=== PATIENT | male | born 1985 | race Two or more races ===

== ENCOUNTER 2019-12-14 12:24 | Emergency (ER) | payer OTHER, SELFPAY ==
[2019-12-14 13:00] VITALS: BP 116/68; PULSE 76; RESP 16; TEMP 36.8; O2SAT 98; BMI 26.1
[2019-12-14 13:09] VITALS: BMI 57.5
--- NOTE | 2019-12-14 13:24 | XR_ITS ---
EXAMINATION: RIGHT FOOT AND RIGHT ANKLE. CLINICAL INFORMATION: Status post injury. Now with pain to right foot and ankle. COMPARISON: None TECHNIQUE: 2 views right foot. 3 views right ankle. FINDINGS: RIGHT FOOT: There is no visible acute fracture, dislocation or subluxation. The soft tissues are normal. RIGHT ANKLE: There is no visible fracture, dislocation or subluxation. The ankle mortise and subtalar joints are normal. IMPRESSION: Unremarkable right foot exam. Unremarkable right ankle exam.
--- NOTE | 2019-12-14 14:24 | ED.LOWEXIN ---
HPI - Extremity Injury (Lower) General Chief Complaint: Extremity Injury, Lower Stated Complaint: r leg inj at home Time Seen by Provider: 12/14/19 13:09 Source: patient Mode of arrival: ambulatory Limitations: no limitations History of Present Illness HPI Narrative: 34yoM c No Sig PMHx presenting to the ED c c/o Right ankle/foot s/p jumping and twisting his foor/ankle saturday and since then has been having pain. Denies any other injuries Or complaints or concerns at this time. Related Data Allergies Allergy/AdvReac Type Severity Reaction Status Date / Time No Known Allergies Allergy Unverified 11/12/19 15:33 Review of Systems Review of Systems: Skin : No Skin Lesions, No rash. No abrasions, No lacerations Neuro : No Weakness, No Numbness, No Paresthesias, No Loss of Consciousness Yes all other systems are reviewed and are negative [facility] Past Medical History Medical History (Updated 12/14/19 @ 13:03 by Benton Bhardwaj) No known health problems Social History Social History Alcohol intake: never Smoked in Last 30 Days: No Use of substances other than those prescribed or required for medical reasons: No Advance Directives: No Advance Directives Information Provided: No Physical Exam Vital Signs: Vital Signs: Vital Signs Temp Pulse Resp BP Pulse Ox 12/14/19 13:00 98.2 F 76 16 116/68 98 Body Mass Index 57.5 vital signs have been reviewed as normal and appeared to be correct. Blood pressure normal. Heart rate normal. Respiration rate normal. Temperature normal. Oxygen saturation normal. Appearance: Alert. Oriented X3. No acute distress. Head: Normal external exam. Normocephalic. Atraumatic. No Corrigan signs noted. No raccoon eyes noted Eyes: PERRLA. EOMI. Conjunctiva and sclera normal. Eyelids normal. ENT: EAC normal. TM's Normal. Pharynx normal. Uvula midline. Moist mucous membranes. No trismus noted. No drooling noted. No muffled voice noted. Neck: Normal inspection. Neck supple. FROM. No adenopathy. Thyroid Normal. No meningeal signs. No neck mass noted. CVS: Normal heart rate and rhythm. Heart sound normal. No murmurs noted. Pulses normal throughout. Respiratory: No respiratory distress. Painless inspiration. Breath sounds normal. No wheezes/rales/rhonchi noted. Chest nontender. No accessory muscle usage noted or decreased air movement noted. Abdomen: Soft and nontender. Bowel sounds normal in all 4 quadrants. No distention noted. No organomegaly noted. No visible injury noted. Back: No CVA tenderness. Full range of motion noted. Skin: Skin warm and dry. Normal skin color. Normal skin turgor. No rashes/lesions/lacerations noted. Extremities: TTP of r lateral aspect of ankle and proximal aspect of foot c mild sts. No obvious deformities. Patient has full range of motion. Normal steady gait. No lower extremity edema. All other Extremities exhibit normal range of motion and nontender. Neuro: Oriented X 3. No motor deficit. No sensory deficit. Reflexes normal. Course Course Course Narrative: 34yoM c No Sig PMHx presenting to the ED c c/o Right ankle/foot s/p jumping and twisting his foor/ankle saturday and since then has been having pain. - Plan: XRay of r ankle/foot Then re-evaluate. Reevaluation(s) Reevaluation #1: Will DC home with symptomatic treatment along with instructions return if any new or worsening symptoms and to follow up with primary care provider. Patient understands agrees with this plan. MDM - Extremity Injury (Lower) Medical Records Attestation: I reviewed the patient's medical records. Imaging Data r ankle/foot: Attestation: I personally reviewed and interpreted this imaging study as follows: Radiologist's impression: FINDINGS: RIGHT FOOT: There is no visible acute fracture, dislocation or subluxation. The soft tissues are normal. RIGHT ANKLE: There is no visible fracture, dislocation or subluxation. The ankle mortise and subtalar joints are normal. IMPRESSION: Unremarkable right foot exam. Unremarkable right ankle exam.
== END 2019-12-14 14:45 | disposition home or self-care (01) ==
PROVIDERS: Emergency Provider Emergency Medicine; PCP Internal Medicine
DX: S99.911A Unspecified injury of right ankle, initial encounter (principal); M25.571 Pain in right ankle and joints of right foot; X50.1XXA Overexertion from prolonged static or awkward postures, initial encounter; Y93.41 Activity, dancing; Y92.9 Unspecified place or not applicable; Y99.8 Other external cause status
CPT/HCPCS: 73610; 73630; 99283; 99284

== ENCOUNTER 2021-01-15 16:35 | Emergency (ER) | payer OTHER, SELFPAY ==
--- NOTE | ~2021-01-15 | CT_ITS ---
EXAMINATION: CT abdomen pelvis wo con CLINICAL INFORMATION: Reason for Exam pt c right flank pain ? stones COMPARISON: No prior CT available for comparison. TECHNIQUE: Multidetector volumetric imaging was performed from the superior aspect of the liver through the pubic symphysis 100 mL of Omnipaque 300 injected Sagittal and coronal reformatted images were obtained on the technologist's workstation. This CT examination was performed using dose optimization techniques as appropriate, variously including the following: *Automated exposure control *Adjustment of mA and/or kV according to patient size (this includes techniques or standardized protocols for targeted exams where dose is matched to indication/reason for exam; i.e. extremities or head) *Use of iterative reconstruction technique DLP: 580 mGy-cm FINDINGS: LOWER THORAX: Included lung bases are clear. HEPATOBILIARY: Diffusely hypodense liver suggesting hepatic steatosis, GALLBLADDER: Gallbladder unremarkable. SPLEEN: Spleen is normal in size. PANCREAS: No focal mass or ductal dilatation. STOMACH AND GASTROINTESTINAL TRACT: Stomach is grossly unremarkable. There is no bowel distention or thickening. No CT evidence of appendicitis. ADRENALS: No adrenal nodules. KIDNEYS/URETERS: No hydronephrosis, stones or solid mass lesions. URINARY BLADDER: Partially decompressed. PELVIC VISCERA: Unremarkable PERITONEUM: No free air or fluid. LYMPH NODES: No lymphadenopathy. VASCULAR:Abdominal aorta normal in size, no aneurysm found. BONES, ABDOMINAL WALL AND SOFT TISSUES: Age-appropriate changes of the spine and skeletal system, no destructive osteolytic or osteosclerotic bone lesion found CT/CT abdomen pelvis wo con IMPRESSION: No CT evidence of kidney stones or hydronephrosis. No CT explanation for patient's symptoms. Diffusely hypodense liver suggesting hepatic steatosis.
[2021-01-15 16:59] VITALS: BP 112/53; PULSE 66; RESP 18; TEMP 36.1; O2SAT 98; BMI 26.5
[2021-01-15] MEDS: diazePAM 5 MG TABLET 10 MG PO (17:58)
[2021-01-15] MEDS: NaPROXEN 500 MG TABLET PO (17:58)
[2021-01-15 18:13] LABS: Appearance Urine CLEAR; Color Urine YELLOW; Glucose Urine UA NEG (NEG); Leukocyte Esterase Urine NEG (NEG); Nitrite Urine NEG (NEG); Specific Gravity - Urine 1.025 (1.005-1.025); Urine Blood NEG (NEG); Urine Ketones NEG (NEG); Urine Protein NEG (NEG-TRACE)
--- NOTE | 2021-01-15 18:21 | ED.BACK ---
HPI - Back Pain/Injury General Chief Complaint: Back Pain/Injury Stated Complaint: lower back pain Time Seen by Provider: 01/15/21 17:39 Source: patient and family Mode of arrival: ambulatory Limitations: no limitations History of Present Illness HPI Narrative: 35-year-old male presenting to the ED with complaints of atraumatic right mid to lower back pain for the past week that is now radiating to his right flank/right lower quadrant/right groin area to his right lower extremity. He denies any fevers, chills, dizziness, headaches, neck pain/stiffness, chest pain or shortness of breath, dyspnea on exertion, orthopnea, palpitations, dysuria, hematuria, abnormal penile discharge, weakness, saddle anesthesias, IV drug use, rashes or any other symptoms complaints or concerns at this time MD elicited complaint: back pain Onset (ago): week(s) (One) Timing: constant and progressively worsening Severity: moderate Quality: aching Location: lumbar spine and right lower back Radiation: abdomen, groin and right upper leg Exacerbating factors: movement and walking Relieving factors: none Context: unknown Associated symptoms: denies other symptoms Work related injury: No Related Data Previous Rx's Medication Instructions Recorded diazepam 10 mg tablet (Valium) 10 mg PO TID PRN #10 tab 01/15/21 naproxen 500 mg tablet 500 mg PO BID PRN #10 tab 01/15/21 Allergies Allergy/AdvReac Type Severity Reaction Status Date / Time No Known Allergies Allergy Verified 01/15/21 16:59 Review of Systems Review of Systems: Constitutional : No trauma, No Weight loss, No Fever, No Chills, ENT/Mouth : No Hearing loss, No Ear Pain, No Nasal Congestion, No Sinus Pain, No Hoarseness, No sore throat, No Rhinorrhea, No Swallowing Difficulty Cardiovascular : No Chest Pain, No SOB Respiratory : No Cough, No Dyspnea Gastrointestinal : No Nausea, No Vomiting, No Diarrhea, + abdominal Pain, No Hematochezia, No Melena Genitourinary : No Dysuria, No Urinary Frequency, No Hematuria, No Urinary or Bowel Incontinence/retention Musculoskeletal : + Back pain, No neck pain, No joint stiffness, No joint swelling Skin : No Skin Lesions, No rash or signs of infection Neuro : No Weakness, + radiation, No Numbness, No Paresthesias, No headache, no loss of bowel or bladder incontinence, no saddle anesthesia, Focal weakness, No radiation Denies history of IV drug usage. Yes all other systems are reviewed and are negative [facility] Past Medical History Attestation statement: The following information was validated with the patient. Medical History Erectile dysfunction Polyuria Surgical History No pertinent past surgical history Family History Family History Father Psoriasis Asthma Hypertension Mother Asthma Diabetes Hypothyroid Arthritis Paternal Grandmother Alzheimers disease Maternal Grandmother Stroke Social History Social History Alcohol intake: current Alcohol intake frequency: holidays/special occasions only Advance Directives: No Advance Directives Information Provided: No Physical Exam Vital Signs: Vital Signs: Last Vital Signs Temp 97.0 F 01/15/21 16:59 Pulse 66 01/15/21 16:59 Resp 18 01/15/21 16:59 BP 112/53 L 01/15/21 16:59 Pulse Ox 98 01/15/21 16:59 Body Mass Index 26.5 vital signs have been reviewed as normal and appeared to be correct. Blood pressure normal. Heart rate normal. Respiration rate normal. Temperature normal. Oxygen saturation normal. Appearance: Alert. Oriented X3. No acute distress. Head: Normal external exam. Normocephalic. Atraumatic. Eyes: PERRLA. EOMI. Conjunctiva and sclera normal. Eyelids normal. ENT: Pharynx normal. Uvula midline. Moist mucous membranes. Neck: Normal inspection. Neck supple. FROM. No adenopathy. Thyroid Normal. No meningeal signs. No neck mass noted. CVS: Normal heart rate and rhythm. Heart sound normal. No murmurs noted. Pulses normal throughout. Respiratory: No respiratory distress. Painless inspiration. Breath sounds normal. No wheezes/rales/rhonchi noted. Chest nontender. No accessory muscle usage noted or decreased air movement noted. Abdomen: Soft and mild tenderness palpation to the right flank/right lower quadrant/right groin. Bowel sounds normal in all 4 quadrants. No distention noted. No organomegaly noted. No visible injury noted. Back: + Right CVA tenderness. No Left CVA tenderness. Full range of motion noted. No obvious deformities, or edema. Mild para-spinal muscular tenderness from lumbar region to coccyx. Full ROM in back and lower extremities. 5/5 strength hip extension/flexion, abduction, adduction. Mild Lumbar pain with hip flexion against resistance. Straight leg raise test negative on right; Straight leg raise test negative on left; Reflexes normal ankle and knee bilaterally; EHL motor strength normal bilaterally. No rashes/lesion/induration/fluctuance or signs infection noted. Skin: Skin warm and dry. Normal skin color. Normal skin turgor. No rashes/lesions/lacerations noted. Extremities: Extremities exhibit normal range of motion. Extremities nontender. Neuro: Oriented X 3. No motor deficit. No sensory deficit. Reflexes normal. Patient has a normal steady gait. Course Course Course Narrative: 18pm - Pt c likely muscular pain, but could be herniated disc. Neuro exam shows no deficits. Not c/w Pyelo/UTI/spinal fx. Not c/w AAA/epidural abscess/dissection.No high risk Hx (Incont, fever, immunosupp, recent surgery/LP, coag, signif trauma, wt loss, puls mass, hx/o Ca, TB, or IVDU) to warrant MRI. Not cauda equina syndrome. Although due to patient having right back/flank/right lower quadrant pain will obtain a CT scan abdomen pelvis without IV contrast to evaluate for possible kidney stones and treat symptomatically. Then re-evaluate Reevaluation(s) Reevaluation #1: - UA within normal limits no hematuria or evidence of UTI noted. Therefore CT scan of abdomen and pelvis without IV contrast pending at this time. Sign out to LASHELL Mcdaniel scan abdomen pelvis without IV contrast if negative patient can be discharged home with symptomatic relief and instructions to follow-up with primary care provider and to return if any new or worsening symptoms. Patient and significant other at bedside understand and agree this plan. Time: 18:48 [facility] - Back Pain/Injury Medical Records Attestation: I reviewed the patient's medical records. Lab Data Attestation: I reviewed the patient's lab results. Labs: Lab Results 01/15/21 Range/Units 18:01 Urine Color YELLOW Urine Appearance CLEAR Urine pH 6.0 (5.0-8.0) Ur Specific [place] 1.025 (1.005-1.025) Urine Protein NEG (NEG-TRACE) MG/DL Urine Glucose (UA) NEG (NEG) MG/DL Urine Ketones NEG (NEG) MG/DL Urine Blood NEG (NEG) Urine Nitrite NEG (NEG) Ur Leukocyte Esterase NEG (NEG) Discharge Plan Discharge Clinical Impression: Strain of lumbar region Patient Disposition: Home, Self-Care Instructions: Low Back Strain (ED) Prescriptions: New diazepam [Valium] 10 mg tablet 10 mg PO TID PRN (Reason: muscle spasm) Qty: 10 RF: 0 naproxen 500 mg tablet 500 mg PO BID PRN (Reason: pain) Qty: 10 RF: 0 Referrals: Tiera David MD [Primary Care Provider] - 2 days Stand Alone Forms: Work/School Release Print Language: Kazakh
== END 2021-01-15 20:53 | disposition home or self-care (01) ==
PROVIDERS: Physician Assistant Medical; Emergency Provider Emergency Medicine; PCP Internal Medicine
DX: S39.012A Strain of muscle, fascia and tendon of lower back, initial encounter (principal); R10.2 Pelvic and perineal pain; X58.XXXA Exposure to other specified factors, initial encounter; Y93.9 Activity, unspecified; Y92.9 Unspecified place or not applicable; Y99.9 Unspecified external cause status; Z79.899 Other long term (current) drug therapy
CPT/HCPCS: 74176; 81003; 99284

== ENCOUNTER 2022-08-20 21:50 | Emergency (ER) | payer OTHER, SELFPAY ==
--- NOTE | ~2022-08-20 | XR_ITS ---
EXAMINATION: XR ANKLE, LEFT CLINICAL INFORMATION: Left ankle injury COMPARISON: None available. TECHNIQUE: AP, lateral, and mortise views of the left ankle. FINDINGS: Osseous alignment is anatomic. No acute fracture is seen. No significant focal soft tissue abnormality identified. XR/XR ankle LT min 3V IMPRESSION: No acute findings.
[2022-08-20 21:55] VITALS: BP 137/77; PULSE 77; RESP 20; TEMP 36.6; O2SAT 98; BMI 25.8
[2022-08-21] MEDS: Acetaminophen 325 MG TABLET 650 MG PO (00:20)
[2022-08-21] MEDS: Ibuprofen 600 MG TABLET PO (00:21)
--- NOTE | 2022-08-21 00:37 | ED_ITS ---
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 comes in with pain patient the lateral aspect of the ankle increased pain on ambulation no other injury Related Data Previous Rx's Medication Instructions Recorded diazepam 10 mg tablet (Valium) 10 mg PO TID PRN muscle spasm #10 01/15/21 tabs naproxen 500 mg tablet 500 mg PO BID PRN pain #10 tabs 01/15/21 ibuprofen 600 mg tablet 600 mg PO Q6H PRN fever or pain 08/21/22 #30 tabs Allergies Allergy/AdvReac Type Severity Reaction Status Date / Time No Known Allergies Allergy Verified 08/20/22 21:55 Review of Systems Review of Systems: Yes all other systems are reviewed and are negative [facility] Past Medical History Medical History Erectile dysfunction Polyuria Surgical History No pertinent past surgical history Family History Family History Father Psoriasis Asthma Hypertension Mother Asthma Diabetes Hypothyroid Arthritis Paternal Grandmother Alzheimers disease Maternal Grandmother Stroke Social History Social History Alcohol intake: current Alcohol intake frequency: holidays/special occasions only Advance Directives: No Advance Directives Information Provided: Yes Physical Exam Vital Signs: Vital Signs: Last Vital Signs Temp 98 F 08/20/22 21:55 Pulse 77 08/20/22 21:55 Resp 20 08/20/22 21:55 BP 137/77 08/20/22 21:55 Pulse Ox 98 08/20/22 21:55 O2 Del Method Room Air 08/20/22 21:55 BMI result Body Mass Index 25.8 Extrem: Ankle/foot/toe images: 1. Soft tissue swelling and tenderness lateral aspect of left ankle no deformity neurovascular intact Medications Administered Discontinued Medications Generic Name Dose Route Start Last Admin Trade Name Freq PRN Reason Stop Dose Admin Acetaminophen 650 mg 08/20/22 23:28 08/21/22 00:20 Acetaminophen 325 Mg Tablet PO 08/20/22 23:29 650 mg ONCE ONE Administration Ibuprofen 600 mg 08/20/22 23:28 08/21/22 00:21 Ibuprofen 600 Mg Tablet PO 08/20/22 23:29 600 mg ONCE ONE Administration Ibuprofen 600 mg 08/21/22 00:30 08/21/22 00:48 Ibuprofen 600 Mg Tablet PO 08/21/22 00:31 Not Given ONCE ONE Tramadol HCl 50 mg 08/21/22 00:30 08/21/22 00:47 Tramadol Hcl 50 Mg Tablet PO 08/21/22 00:31 50 mg ONCE ONE Administration Medical Decision Making Medical Decision Making MDM Narrative: Patient after minor ankle sprains x-ray negative will use Aircast and given crutches pain medication advised to follow with PCP Discharge Plan Discharge Clinical Impression: Left ankle sprain Patient Disposition: Home, Self-Care Instructions: Ankle Sprain (ED) Additional Instructions: Wear the Aircast for support take ibuprofen for pain Crutches for ambulation Prescriptions: New ibuprofen 600 mg tablet 600 mg PO Q6H PRN (Reason: fever or pain) Qty: 30 0RF No Action diazepam [Valium] 10 mg tablet 10 mg PO TID PRN (Reason: muscle spasm) Qty: 10 0RF naproxen 500 mg tablet 500 mg PO BID PRN (Reason: pain) Qty: 10 0RF Stand Alone Forms: Work/School Release Interventions: ED Discharge Assessment Last Done: 08/21/22 00:55 Discharge Date/Time: 08/21/22 00:59
[2022-08-21] MEDS: traMADoL HCL 50 MG TABLET PO (00:47)
--- NOTE | 2022-08-21 00:59 | MHC.EDTECH ---
This tech placed an aircast to Left ankle per Dr. Gagnon,crutches taught by this tech. Patient tolerated well. RN aware
== END 2022-08-21 00:59 | disposition home or self-care (01) ==
PROVIDERS: Emergency Provider Internal Medicine; PCP Internal Medicine
DX: S93.402A Sprain of unspecified ligament of left ankle, initial encounter (principal); X50.1XXA Overexertion from prolonged static or awkward postures, initial encounter; Y93.9 Activity, unspecified; Y92.9 Unspecified place or not applicable; Y99.9 Unspecified external cause status
CPT/HCPCS: 73610; 99283

== ENCOUNTER 2023-06-01 11:39 | Emergency (ER) | payer OTHER, SELFPAY ==
--- NOTE | ~2023-06-01 | US_ITS ---
EXAMINATION: US ABDOMEN LIMITED CLINICAL INFORMATION: Right upper quadrant abdominal pain. COMPARISON: Selected images of the abdomen and pelvic CT scan of 01/15/2021 TECHNIQUE: Real-time imaging of the right upper quadrant abdominal viscera. FINDINGS: PANCREAS: The last portion of the pancreatic head and body is unremarkable, remainder of the pancreas is obscured from visualization by overlying bowel gas. Upper limits of normal prominence of the pancreatic duct is noted in the visualized pancreas. No evidence of peripancreatic fluid. LIVER: Somewhat limited evaluation of the liver due to shadowing from the overlying ribs. The liver is normal in size. Visualized liver contour is normal. There is heterogeneous appearance of the liver parenchyma with scattered patchy areas of increased parenchymal echogenicity. Findings are most consistent with patchy hepatic steatosis. Focal areas of fatty sparing are noted around the gallbladder. Evaluation for focal hepatic lesion in the setting of underlying steatosis. No biliary ductal dilatation is noted. GALLBLADDER: Normal. The gallbladder is physiologically distended without evidence of stones, sludge, polyps, wall thickening or pericholecystic fluid. COMMON BILE DUCT: Not clearly visualized. Presumed common bile duct proximally measures 0.3 cm in diameter. RIGHT KIDNEY: Normal. No hydronephrosis. No renal calculi or focal parenchymal lesions. Incidental note is made of a small extrarenal pelvis. The kidney measures 12.0 cm in maximum dimension. FREE FLUID: None. US/US abdomen limited IMPRESSION: Limited evaluation. Suggestive of patchy hepatic steatosis with focal areas of fatty sparing around the gallbladder. Heterogeneous appearance of the liver parenchyma. Evaluation for focal hepatic lesion in the setting of steatosis and parenchymal heterogeneity is limited. No evidence of cholelithiasis or acute cholecystitis. No biliary ductal dilatation.
[2023-06-01 11:44] VITALS: BP 112/71; PULSE 88; RESP 18; TEMP 36.8; O2SAT 98; BMI 27.5
--- NOTE | 2023-06-01 11:45 | ED.ABDPAIN ---
HPI - Abdominal Pain General Chief Complaint: Abdominal Pain Stated Complaint: Stomach pain Time Seen by Provider: 06/01/23 17:45 Related Data Previous Rx's ?Medication ?Instructions ?Recorded diazepam 10 mg tablet (Valium) 10 mg PO TID PRN muscle spasm #10 01/15/21 tabs naproxen 500 mg tablet 500 mg PO BID PRN pain #10 tabs 01/15/21 ibuprofen 600 mg tablet 600 mg PO Q6H PRN fever or pain 08/21/22 #30 tabs nirmatrelvir 300 mg (150 mg 3 ea PO PER PKG DIR 5 days #30 ea 03/06/23 x2)-ritonavir 100 mg tablet,dose pack (Paxlovid) pantoprazole 40 mg tablet,delayed 40 mg PO DAILY #14 tabs 06/01/23 release (Protonix) Allergies Allergy/AdvReac Type Severity Reaction Status Date / Time No Known Allergies Allergy Verified 06/01/23 11:46 PMFSH Past Medical History Medical History Polyuria Erectile dysfunction Surgical History No pertinent past surgical history Family History Family History Father Psoriasis Asthma Hypertension Mother Asthma Diabetes Hypothyroid Arthritis Paternal Grandmother Alzheimers disease Maternal Grandmother Stroke Social History Social History Alcohol intake: current Alcohol intake frequency: holidays/special occasions only Smoked in Last 30 Days: No Use of substances other than those prescribed or required for medical reasons: No Advance Directives: No Physical Exam ED Vital Signs: Vital Signs - 24 hr 06/01/23 11:44 06/01/23 17:49 06/01/23 18:42 Temperature 98.2 F 97.7 F 98.9 F Pulse Rate 88 78 76 Respiratory Rate 18 18 18 Blood Pressure 112/71 106/71 128/70 Pulse Oximetry 98 98 99 Oxygen Delivery Method Room Air Room Air Room Air 06/01/23 20:47 06/01/23 23:31 Temperature 98.6 F 98.7 F Pulse Rate 78 82 Respiratory Rate 14 14 Blood Pressure 122/77 138/74 Pulse Oximetry 98 99 Oxygen Delivery Method Room Air Room Air BMI result Body Mass Index 27.5 Course Course Course Narrative: This is a Rapid Medical Examination (RME) in triage, full HPI, ROS, assessment and plan per primary provider in the Main ED. 37 yo male presents to the ER for evaluation of 7/10 epigastric abdominal pain along with nausea and 5 episodes of non-bloody diarrhea that started this morning. Plan: lab workup, imaging deferred to primary provider Medical Decision Making Lab Data 06/01/23 11:53 06/01/23 11:53 Labs: Lab Results 06/01/23 06/01/23 Range/Units 11:53 17:42 WBC 9.5 (4.8-10.8) X10*3/uL RBC 6.44 H (4.60-5.80) X10*6/uL Hgb 16.7 (14.0-18.0) g/dl Hct 51.2 (42.0-52.0) % MCV 79.5 L (80.0-98.0) fL MCH 25.9 L (27.0-33.0) pg MCHC 32.6 (31.0-36.0) g/dl RDW 14.5 (11.0-16.0) % Plt Count 255 (160-400) X10*3/uL MPV 10.9 (9.4-12.4) fL Immature Gran % (Auto) 0.3 (0.0-0.4) % Neut % (Auto) 82.2 H (45-73) % Lymph % (Auto) 9.9 L (20-40) % Graham % (Auto) 6.0 (2-11) % Eos % (Auto) 1.4 (0-4) % Baso % (Auto) 0.2 (0-2) % Lymph # (Auto) 0.9 L (1.2-4.9) X10*3/uL Graham # (Auto) 0.6 (0.1-1.2) X10*3/uL Eos # (Auto) 0.1 (0.0-0.4) X10*3/uL Baso # (Auto) 0.0 (0.0-0.2) X10*3/uL Abs Immat Gran (auto) 0.03 (0.00-0.03) X10*3/uL Absolute Neuts (auto) 7.8 (2.0-8.3) x10*3/uL Absolute Nucleated RBC 0.000 (0.0-0.012) X10*3/uL Nucleated RBC % (auto) 0.0 (0.0-0.2) /100WBC Sodium 139 (135-145) mmol/L Potassium 4.2 (3.3-5.1) mmol/L Chloride 107 (96-108) mmol/L Carbon Dioxide 27 (22-29) mmol/L Anion Gap 9 L (12-20) BUN 16 (9-16) mg/dL Creatinine 1.15 (0.5-1.4) mg/dL Estim Creat Clear Calc 89.9 Estimated GFR > 60 Random Glucose 93 (60-115) mg/dL Calcium 9.3 (8.4-10.2) mg/dL Magnesium 2.0 (1.6-2.6) mg/dL Total Bilirubin 0.7 (0.0-1.0) mg/dL Direct Bilirubin 0.2 (0.0-0.5) mg/dL AST 12 (5-37) U/L ALT 25 (0-40) U/L Alkaline Phosphatase 88 (39-117) U/L Total Protein 8.1 H (6.5-8.0) g/dL Albumin 4.1 (3.5-5.0) g/dL Lipase 52 (8-78) U/L Influenza Type A (PCR) NEGATIVE (Negative) Influenza Type B (PCR) NEGATIVE (Negative) RSV RNA Qual (PCR) NEGATIVE (Negative) SARS-CoV-2 RNA (RT-PCR) NEGATIVE (Negative) Medications Administered Discontinued Medications Generic Name Dose Route Start Last Admin Trade Name Freq PRN Reason Stop Dose Admin Al Hydroxide/Mg Hydroxide 30 ml 06/01/23 17:39 06/01/23 17:46 Magnesium Hydrox/Alum Hydrox 30 Ml Oral.Susp PO 06/01/23 17:40 30 ml ONCE ONE Administration Al Hydroxide/Mg Hydroxide 30 ml 06/01/23 21:35 06/01/23 22:39 Magnesium Hydrox/Alum Hydrox 30 Ml Oral.Susp PO 06/01/23 21:36 30 ml ONCE ONE Administration Famotidine 20 mg 06/01/23 17:39 06/01/23 17:46 Famotidine 20 Mg Tablet PO 06/01/23 17:40 20 mg ONCE ONE Administration Sodium Chloride 1,000 mls @ 999 mls/hr 06/01/23 18:00 06/01/23 19:29 Ns IV 06/01/23 19:00 Infused .Q1H1M LOUISA Infusion Lidocaine HCl 15 ml 06/01/23 17:39 06/01/23 17:46 Lidocaine Hcl Viscous 2 % 15 Ml Solution MUCOUS MEM 06/01/23 17:40 15 ml ONCE ONE Administration Loperamide HCl 2 mg 06/01/23 17:39 06/01/23 17:46 Loperamide Hcl 2 Mg Capsule PO 06/01/23 17:40 2 mg ONCE ONE Administration Ondansetron HCl 4 mg 06/01/23 17:39 06/01/23 17:46 Ondansetron Odt 4 Mg Tab.Rapdis TRANSLINGU 06/01/23 17:40 4 mg ONCE ONE Administration Discharge Plan Discharge Clinical Impression: Gastritis Patient Disposition: Home, Self-Care Instructions: Gastritis (DC) Additional Instructions: Nonspecific finding was noted in your liver. Please follow-up with GI and with your primary physician. Prescriptions: New pantoprazole [Protonix] 40 mg tablet,delayed release (DR/EC) 40 mg PO DAILY Qty: 14 0RF No Action Paxlovid 300 mg (150 mg x 2)-100 mg tablets,dose pack 3 ea PO PER PKG DIR 5 Days Qty: 30 0RF diazepam [Valium] 10 mg tablet 10 mg PO TID PRN (Reason: muscle spasm) Qty: 10 0RF naproxen 500 mg tablet 500 mg PO BID PRN (Reason: pain) Qty: 10 0RF ibuprofen 600 mg tablet 600 mg PO Q6H PRN (Reason: fever or pain) Qty: 30 0RF Referrals: Tiera David MD [Primary Care Provider] - 06/05/23 Juan Valentin MD [Physician] - 06/05/23 Stand Alone Forms: Work/School Release Print Language: [place]orese
[2023-06-01 11:59] LABS: MANUAL DIFF FLAG NO
[2023-06-01 12:02] LABS: Basophils Percent Auto 0.2 % (0-2); Eosinophils Absolute Auto 0.1 X10*3/uL (0.0-0.4); Eosinophils Percent Auto 1.4 % (0-4); Hematocrit 51.2 % (42.0-52.0); Hemoglobin 16.7 g/dl (14.0-18.0); Imm Gran Abs Auto 0.03 X10*3/uL (0.00-0.03); Imm Gran Pct Auto 0.3 % (0.0-0.4); Lymphocytes Absolute Auto 0.9 X10*3/uL (1.2-4.9); Lymphocytes Percent Auto 9.9 % (20-40); Mean Corpuscular HGB Conc 32.6 g/dl (31.0-36.0); Mean Corpuscular Hemoglobin 25.9 pg (27.0-33.0); Mean Corpuscular Volume 79.5 fL (80.0-98.0); Mean Platelet Volume 10.9 fL (9.4-12.4); Monocytes Absolute Auto 0.6 X10*3/uL (0.1-1.2); Neutrophils Absolute Auto 7.8 x10*3/uL (2.0-8.3); Neutrophils Percent Auto 82.2 % (45-73); Platelet Count 255 X10*3/uL (160-400); Red Blood Count 6.44 X10*6/uL (4.60-5.80); Red Cell Distribution Width 14.5 % (11.0-16.0); White Blood Count 9.5 X10*3/uL (4.8-10.8)
[2023-06-01 12:19] LABS: Alanine Aminotransferase 25 U/L (0-40); Albumin Level 4.1 g/dL (3.5-5.0); Alkaline Phosphatase 88 U/L (39-117); Anion Gap 9 (12-20); Aspartate Amino Transferase 12 U/L (5-37); Bilirubin Direct 0.2 mg/dL (0.0-0.5); Bilirubin Total 0.7 mg/dL (0.0-1.0); Blood Urea Nitrogen 16 mg/dL (9-16); Calcium 9.3 mg/dL (8.4-10.2); Carbon Dioxide 27 mmol/L (22-29); Chloride 107 mmol/L (96-108); Creatinine Clr Calc Pharmacy 89.9; Estimated Glomerular Filt Rate > 60; Glucose Random 93 mg/dL (60-115); Lipase 52 U/L (8-78); Potassium 4.2 mmol/L (3.3-5.1); Sodium 139 mmol/L (135-145); Total Protein 8.1 g/dL (6.5-8.0)
[2023-06-01] MEDS: Loperamide HCl 2 MG CAPSULE PO (17:46)
[2023-06-01] MEDS: Ondansetron ODT 4 MG TAB.RAPDIS TRANSLINGU (17:46)
[2023-06-01] MEDS: Magnesium Hydrox/Alum Hydrox 30 ML ORAL.SUSP PO ×2 (17:46→22:39)
[2023-06-01] MEDS: Lidocaine HCl Viscous 2 % 15 ML SOLUTION MUCOUS MEM (17:46)
[2023-06-01] MEDS: Famotidine 20 MG TABLET PO (17:46)
[2023-06-01 17:49] VITALS: BP 106/71; PULSE 78; RESP 18; TEMP 36.5; O2SAT 98
--- NOTE | 2023-06-01 17:49 | PC.NURSE ---
pt medicated per MAR
--- NOTE | 2023-06-01 17:51 | ECG_ITS ---
Test Reason : ABD PAIN Blood Pressure : / mmHG Vent. Rate : 077 BPM Atrial Rate : 077 BPM P-R Int : 154 ms QRS Dur : 090 ms QT Int : 352 ms P-R-T Axes : 061 075 054 degrees QTc Int : 398 ms Poor data quality Normal sinus rhythm Normal ECG When compared to the previous EKG of Poor data quality in current ECG precludes serial comparison Referred By: Micaela Leo Electronically Signed By:DARNELL WONG MD
--- NOTE | 2023-06-01 17:52 | ED_ITS ---
HPI - Abdominal Pain General Chief Complaint: Abdominal Pain Stated Complaint: Stomach pain Time Seen by Provider: 06/01/23 17:45 History of Present Illness HPI narrative: Patient is a 37-year-old male presented today with having abdominal pain in the epigastric area. The pain is dull. There was not radiate. Patient pain started this morning. There has no chest pain. There has no shortness of breath. There has no diaphoresis. Patient has no history of diabetes, hypertension, high cholesterol, smoking. Never had heart attack. No sudden deaths in the family. Patient denies any coughing congestion upper respiratory symptoms. Patient is from home. Related Data Previous Rx's ?Medication ?Instructions ?Recorded diazepam 10 mg tablet (Valium) 10 mg PO TID PRN muscle spasm #10 01/15/21 tabs naproxen 500 mg tablet 500 mg PO BID PRN pain #10 tabs 01/15/21 ibuprofen 600 mg tablet 600 mg PO Q6H PRN fever or pain 08/21/22 #30 tabs nirmatrelvir 300 mg (150 mg 3 ea PO PER PKG DIR 5 days #30 ea 03/06/23 x2)-ritonavir 100 mg tablet,dose pack (Paxlovid) pantoprazole 40 mg tablet,delayed 40 mg PO DAILY #14 tabs 06/01/23 release (Protonix) Allergies Allergy/AdvReac Type Severity Reaction Status Date / Time No Known Allergies Allergy Verified 06/01/23 11:46 Review of Systems Review of Systems Positive epigastric pain Yes all other systems are reviewed and are negative PMFSH Past Medical History Medical History Polyuria Erectile dysfunction Surgical History No pertinent past surgical history Family History Family History Father Psoriasis Asthma Hypertension Mother Asthma Diabetes Hypothyroid Arthritis Paternal Grandmother Alzheimers disease Maternal Grandmother Stroke Social History Social History Alcohol intake: current Alcohol intake frequency: holidays/special occasions only Smoked in Last 30 Days: No Use of substances other than those prescribed or required for medical reasons: No Advance Directives: No Physical Exam ED Vital Signs: Vital Signs - 24 hr 06/01/23 11:44 06/01/23 17:49 06/01/23 18:42 Temperature 98.2 F 97.7 F 98.9 F Pulse Rate 88 78 76 Respiratory Rate 18 18 18 Blood Pressure 112/71 106/71 128/70 Pulse Oximetry 98 98 99 Oxygen Delivery Method Room Air Room Air Room Air 06/01/23 20:47 06/01/23 23:31 Temperature 98.6 F 98.7 F Pulse Rate 78 82 Respiratory Rate 14 14 Blood Pressure 122/77 138/74 Pulse Oximetry 98 99 Oxygen Delivery Method Room Air Room Air BMI result Body Mass Index 27.5 Appearance: Alert. Oriented X3. No acute distress. Eyes: Pupils equal, round and reactive to light. ENT: Pharynx normal. Neck: Normal inspection. Neck supple. No lymph nodes noted. No crepitus CVS: Normal heart rate and rhythm. Pulses normal. Normal S1 and S2 Respiratory: No respiratory distress. Breath sounds normal. No Wheezing. No rales Abdomen: Soft and nontender. No rigidity. No distention. good BS x4 Skin: Skin warm and dry. Normal skin color. Normal skin turgor. Extremities: No lower extremity edema. Neurovascular intact to all extremities. No Lacerations. No Rash Neuro: Oriented X 3. No motor deficit. No sensory deficit. Moving all extermities. No slurred speech Medical Decision Making Medical Decision Making MDM Narrative: 37 years old presents today with having abdominal pain in the epigastric area. Some mild nausea vomiting diarrhea. Patient's LFTs are normal. Lipase is normal. Ultrasound of the gallbladder showed no evidence of inflammation. No gallbladder wall thickening. Common bile duct was normal in size. No evidence for biliary disease. Nonspecific finding noted in the liver. Will start patient on PPI and refer patient to the GI service. Currently in stable condition. The liver finding was explained to patient. He states understanding. Differential Diagnosis Differential Diagnoses: The differential diagnosis associated with the presentation includes Reflux, gastritis, cholecystitis Admission/Observation Consideration of admission/observation: Escalation of care including admission/observation considered Lab Data [facility] Lab Attestation statement: I reviewed the patient's lab results. 06/01/23 11:53 06/01/23 11:53 Labs: Lab Results 06/01/23 06/01/23 Range/Units 11:53 17:42 WBC 9.5 (4.8-10.8) X10*3/uL RBC 6.44 H (4.60-5.80) X10*6/uL Hgb 16.7 (14.0-18.0) g/dl Hct 51.2 (42.0-52.0) % MCV 79.5 L (80.0-98.0) fL MCH 25.9 L (27.0-33.0) pg MCHC 32.6 (31.0-36.0) g/dl RDW 14.5 (11.0-16.0) % Plt Count 255 (160-400) X10*3/uL MPV 10.9 (9.4-12.4) fL Immature Gran % (Auto) 0.3 (0.0-0.4) % Neut % (Auto) 82.2 H (45-73) % Lymph % (Auto) 9.9 L (20-40) % Leake % (Auto) 6.0 (2-11) % Eos % (Auto) 1.4 (0-4) % Baso % (Auto) 0.2 (0-2) % Lymph # (Auto) 0.9 L (1.2-4.9) X10*3/uL Leake # (Auto) 0.6 (0.1-1.2) X10*3/uL Eos # (Auto) 0.1 (0.0-0.4) X10*3/uL Baso # (Auto) 0.0 (0.0-0.2) X10*3/uL Abs Immat Gran (auto) 0.03 (0.00-0.03) X10*3/uL Absolute Neuts (auto) 7.8 (2.0-8.3) x10*3/uL Absolute Nucleated RBC 0.000 (0.0-0.012) X10*3/uL Nucleated RBC % (auto) 0.0 (0.0-0.2) /100WBC Sodium 139 (135-145) mmol/L Potassium 4.2 (3.3-5.1) mmol/L Chloride 107 (96-108) mmol/L Carbon Dioxide 27 (22-29) mmol/L Anion Gap 9 L (12-20) BUN 16 (9-16) mg/dL Creatinine 1.15 (0.5-1.4) mg/dL Estim Creat Clear Calc 89.9 Estimated GFR > 60 Random Glucose 93 (60-115) mg/dL Calcium 9.3 (8.4-10.2) mg/dL Magnesium 2.0 (1.6-2.6) mg/dL Total Bilirubin 0.7 (0.0-1.0) mg/dL Direct Bilirubin 0.2 (0.0-0.5) mg/dL AST 12 (5-37) U/L ALT 25 (0-40) U/L Alkaline Phosphatase 88 (39-117) U/L Total Protein 8.1 H (6.5-8.0) g/dL Albumin 4.1 (3.5-5.0) g/dL Lipase 52 (8-78) U/L Influenza Type A (PCR) NEGATIVE (Negative) Influenza Type B (PCR) NEGATIVE (Negative) RSV RNA Qual (PCR) NEGATIVE (Negative) SARS-CoV-2 RNA (RT-PCR) NEGATIVE (Negative) Radiology Impression Discussion of test interpretation with radiology: I have reviewed the radiologist's reading. Medications Administered Discontinued Medications Generic Name Dose Route Start Last Admin Trade Name Freq PRN Reason Stop Dose Admin Al Hydroxide/Mg Hydroxide 30 ml 06/01/23 17:39 06/01/23 17:46 Magnesium Hydrox/Alum Hydrox 30 Ml Oral.Susp PO 06/01/23 17:40 30 ml ONCE ONE Administration Al Hydroxide/Mg Hydroxide 30 ml 06/01/23 21:35 06/01/23 22:39 Magnesium Hydrox/Alum Hydrox 30 Ml Oral.Susp PO 06/01/23 21:36 30 ml ONCE ONE Administration Famotidine 20 mg 06/01/23 17:39 06/01/23 17:46 Famotidine 20 Mg Tablet PO 06/01/23 17:40 20 mg ONCE ONE Administration Sodium Chloride 1,000 mls @ 999 mls/hr 06/01/23 18:00 06/01/23 19:29 Ns IV 06/01/23 19:00 Infused .Q1H1M LOUISA Infusion Lidocaine HCl 15 ml 06/01/23 17:39 06/01/23 17:46 Lidocaine Hcl Viscous 2 % 15 Ml Solution MUCOUS MEM 06/01/23 17:40 15 ml ONCE ONE Administration Loperamide HCl 2 mg 06/01/23 17:39 06/01/23 17:46 Loperamide Hcl 2 Mg Capsule PO 06/01/23 17:40 2 mg ONCE ONE Administration Ondansetron HCl 4 mg 06/01/23 17:39 06/01/23 17:46 Ondansetron Odt 4 Mg Tab.Joshua MURO 06/01/23 17:40 4 mg ONCE ONE Administration Discharge Plan Discharge Clinical Impression: Gastritis Patient Disposition: Home, Self-Care Instructions: Gastritis (DC) Additional Instructions: Nonspecific finding was noted in your liver. Please follow-up with GI and with your primary physician. Prescriptions: New pantoprazole [Protonix] 40 mg tablet,delayed release (DR/EC) 40 mg PO DAILY Qty: 14 0RF No Action Paxlovid 300 mg (150 mg x 2)-100 mg tablets,dose pack 3 ea PO PER PKG DIR 5 Days Qty: 30 0RF diazepam [Valium] 10 mg tablet 10 mg PO TID PRN (Reason: muscle spasm) Qty: 10 0RF naproxen 500 mg tablet 500 mg PO BID PRN (Reason: pain) Qty: 10 0RF ibuprofen 600 mg tablet 600 mg PO Q6H PRN (Reason: fever or pain) Qty: 30 0RF Referrals: Tiera David MD [Primary Care Provider] - 06/05/23 Juan Valentin MD [Physician] - 06/05/23 Print Language: [place]er
[2023-06-01] MEDS: 0.9 % Sodium Chloride 1,000 ML 999 ML IV (17:59)
[2023-06-01 18:27] LABS: Influenza A PCR NEGATIVE (Negative); Influenza B PCR NEGATIVE (Negative); Resp Syncy Virus RNA Qual PCR NEGATIVE (Negative); SARS COV2 PCR INHOUSE NEGATIVE (Negative)
[2023-06-01 18:42] VITALS: BP 128/70; PULSE 76; RESP 18; TEMP 37.2; O2SAT 99
[2023-06-01 20:47] VITALS: BP 122/77; PULSE 78; RESP 14; TEMP 37; O2SAT 98
[2023-06-01 23:31] VITALS: BP 138/74; PULSE 82; RESP 14; TEMP 37.1; O2SAT 99
[2023-06-02 01:03] VITALS: BP 136/84; PULSE 89; RESP 16; TEMP 36.8; O2SAT 98
== END 2023-06-02 01:04 | disposition home or self-care (01) ==
PROVIDERS: Physician Assistant; Emergency Provider Emergency Medicine Emergency Medical Services; PCP Internal Medicine
DX: K29.70 Gastritis, unspecified, without bleeding (principal); R10.13 Epigastric pain; Z03.818 Encounter for observation for suspected exposure to other biological agents ruled out; Z79.899 Other long term (current) drug therapy
CPT/HCPCS: 0241U; 36415; 76705; 80048; 80076; 83690; 83735; 85025; 93005; 96360; 99284; 99285

== ENCOUNTER → 2023-06-01 17:51 | Outpatient (BNV) | payer OTHER, SELFPAY | PROVIDERS: Emergency Provider Emergency Medicine Emergency Medical Services; PCP Internal Medicine; Visit Provider Internal Medicine Cardiovascular Disease | DX: R10.9 Unspecified abdominal pain (principal) | CPT/HCPCS: 93010 ==